=== PATIENT | male | born 1955 | race Caucasian/White ===

== ENCOUNTER 2017-02-04 10:09 | Day surgery (SDC) | payer MEDICARE ==
[~2017-02-04 10:09] MED LIST: DIPRIVAN 200 MG/20 ML IV ONE; Kenalog-40 IM ONE; Lactated Ringers 1,000 ML IV ONE; Sensorcaine 0.25% 10 ML IJ ONE
--- NOTE | 2017-02-04 16:27 | XRAY ---
Indication: Left C5-C8 MBB. Intraoperative fluoroscopy was provided for 19 seconds. Single digital spot image submitted for interpretation demonstrates posterior spinal needles with the tips projecting over the expected course of the left C5-C8 nerve roots. Correlate with intraoperative findings/report. Incidental C4-C5 fixation plate/screws.
--- NOTE | 2017-02-04 17:00 | XRAY ---
19 seconds fluoroscopy time in surgery for left C5-8 MBB.
== END 2017-02-04 13:20 | disposition home or self-care (01) ==
LOC: SDC-PAIN 10:09
PROVIDERS: ATTEND Pain Medicine Interventional Pain Medicine
DX: M47.816 Spondylosis without myelopathy or radiculopathy, lumbar region (principal); M54.12 Radiculopathy, cervical region; M50.320 Other cervical disc degeneration, mid-cervical region, unspecified level; M25.512 Pain in left shoulder; Z79.891 Long term (current) use of opiate analgesic
CPT/HCPCS: 64490; 64491; 64492; 72020; 77003; J2704; J3301